=== PATIENT | female | born 1985 | race Caucasian/White ===

== ENCOUNTER 2016-12-15 10:11 | Emergency (ER) | payer MEDICAID, OTHER ==
[~2016-12-15] VITALS: Wt 75.0 kg
[2016-12-15] MEDS ORDERED: LIDOCAINE 1% (MDV) 20 ML INJ SC ONE (11:00)
[2016-12-15] MEDS ORDERED: IBUPROFEN 600 MG TAB PO ONE (11:00)
[2016-12-15] MEDS ORDERED: DOXY100T20 PO (11:34)
[2016-12-15] MEDS ORDERED: ACET500C5 PO (11:34)
--- NOTE | 2016-12-15 11:38 | ERD ---
ER Documentation Chief Complaint Date/Time DATE: 12/15/16 TIME: 11:36 Chief Complaint ABSCESS LEFT CALF HPI This 31-year-old female complains of a painful lesion on her left calf she says did not been there for several months or years but is more painful over the last week. She denies any history of trauma, fevers, restricted range of motion weakness. ROS All systems reviewed and are negative except as per history of present illness. Medications Home Meds Active Scripts Acetaminophen* (Tylophen*) 500 Mg Capsule, 1 CAP PO Q6H Y for PAIN AND OR ELEVATED TEMP, #15 CAP Prov:MUNA BURTON MD 12/15/16 Doxycycline Hyclate* (Doxycycline Hyclate*) 100 Mg Tablet.dr, 100 MG PO BID for 7 Days, TAB Prov:MUNA BURTON MD 12/15/16 PMhx/Soc Medical and Surgical Hx: pt denies Medical Hx, pt denies Surgical Hx Physical Exam Vitals Vital Signs Date Time Temp Pulse Resp B/P Pulse Ox O2 Delivery O2 Flow Rate FiO2 12/15/16 10:14 98.0 86 18 171/71 98 Physical Exam Const: [] Head: Atraumatic Eyes: Normal Conjunctiva ENT: Normal External Ears, Nose and Mouth. Neck: Full range of motion..~ No meningismus. Resp: Clear to auscultation bilaterally Cardio: Regular rate and rhythm, no murmurs Abd: Soft, non tender, non distended. Normal bowel sounds Skin: No petechiae or rashes Back: No midline or flank tenderness Ext: No cyanosis, or edema. There is approximately 1 cm palpable fluctuant lesion on the medial aspect the left calf. There is some surrounding ecchymosis. There is some inflammation no appreciable significant warmth or induration. Neur: Awake and alert Psych: Normal Mood and Affect Results 24 hrs Current Medications Medications (Trade) Dose Ordered Sig/Zainab Route PRN Reason Start Time Stop Time Status Last Admin Dose Admin Ibuprofen (Motrin) 600 mg ONCE ONCE PO 12/15/16 11:00 12/15/16 11:01 DC 12/15/16 10:55 Lidocaine (Xylocaine 1% (Mdv) 20 ml) 20 ml ONCE ONCE SC 12/15/16 11:00 12/15/16 11:01 DC Procedures/MDM Patient presents with a skin lesion on the left calf. It has a clinical appearance of either an irritated sebaceous cyst although surrounding ecchymosis suggest possible varicosity. Procedure note-the left skin lesion on the leg was prepped with Betadine. 2 cc of lidocaine was used for local infiltration. Incision was made with a number 11 scalpel. Mostly blood and clots were removed. There is no purulent discharge. 3-0 nylon suture [id number] was placed for hemostasis. The wound was then dressed. Patient presents with a skin lesion on the left calf which appears to be a ruptured varicose vein with a hematoma. Patient has no active bleeding or signs of current infection. Patient was discharged home with instructions for wound care and the suture removal in 1 week. Patient was advised he is to see his surgeon or torts law professor for treatment for recurrent symptoms and to evaluate for neoplasm for recurrence or persistence. She should otherwise return sooner for increased redness, swelling or fevers otherwise for suture removal as directed. Departure Diagnosis: Primary Impression: Varicose vein of leg Condition: Stable Patient Instructions: Varicose Veins Additional Instructions: patient appears to be ruptured varicose vein. Recommend check in 2 days for redness, fevers, new symptoms or suture removal in 7 days. See dermatology or surgery for recurrent symptoms. May need authorization from primary doctor for surgery visit. MUNA BURTON MD December 15, 2016 11:38
== END 2016-12-15 11:49 | disposition home or self-care (01) ==
LOC: FTE 10:11
DX: I83.92 Asymptomatic varicose veins of left lower extremity (principal)
CPT/HCPCS: 10060; Z7502; Z7610

== ENCOUNTER 2016-12-22 10:52 | Emergency (ER) | payer MEDICAID ==
[~2016-12-22] VITALS: Ht 160 cm; Wt 88.5 kg
[~2016-12-22 10:52] MED LIST: ACET500C5 PO; DOXY100T20 PO
[2016-12-22 11:03] VITALS: Ht 160 cm; Wt 88.5 kg
--- NOTE | 2016-12-22 12:14 | RADRPT ---
PROCEDURE: US Lower extremity Venous. CLINICAL INDICATION: Pain and swelling TECHNIQUE: Multiple sonographic images of the left lower extremity deep venous system was obtained utilizing grayscale, color-flow, compressive sonography and doppler imaging with augmentation. The images were reviewed on a PACS workstation. COMPARISON: None. FINDINGS: There is normal compressibility and flow within the left common femoral, deep femoral, superficial f emoral and popliteal veins. Normal respiratory variation and augmentation is seen. There is normal color flow and compressibility of left posterior tibial and peroneal veins IMPRESSION: No sonographic evidence for left lower extremity deep venous thrombosis. RPTAT: HH .Marcus Retana MD, MD Date Time Electronically viewed and signed by .Marcus Retana MD, on 12/22/2016 12:14 .W/
--- NOTE | 2016-12-22 12:20 | RADRPT ---
PROCEDURE: Ultrasound left calf superficial CLINICAL INDICATION: Palpable mass with pain TECHNIQUE: Axial longitudinal morgan scale and color flow images of the left calf COMPARISON: None FINDINGS: Directed ultrasound examination of the left calf over the area of interest demonstrates a 2.2 x 1.7 cm subcutaneous lesion which is cystic with a solid mural nodular component. Doppler images demonst rate vascularity within the nodular component. This may represent infected sebaceous cyst, or mass especially given the vascularity. Recommend needle biopsy or MRI for further evaluation. No other lesions are identified. IMPRESSION: 1. Directed ultrasound examination of the left calf in the area of tenderness demonstrates a 2.2 x 1.7 x 2.7 cm mixed density subcutaneous lesion with cystic component containing a solid mural nodule . The nodular component demonstrates vascular flow. Recommend further workup with biopsy RPTAT: HH .Marcus Retana MD, Date Time Electronically viewed and signed by .Marcus Retana MD, on 12/22/2016 12:19 .W/
--- NOTE | 2016-12-22 12:25 | ERD ---
ER Documentation Chief Complaint Date/Time DATE: 12/22/16 TIME: 12:22 Chief Complaint Patient here for a suture removal and has complaint of left arm numbness HPI This 31-year-old female presents for recheck on her left calf lesion. She was seen by me approximately 1 week ago. At that time the lesion appears to be possibly infection but only blood was expressed suggesting possible varicosity or inflamed hemangioma. The lesion has been slowly growing for several years. Patient continues have a small amount of spotting from the dressing was opened 100 sutures removed. There is no fevers or redness. ROS All systems reviewed and are negative except as per history of present illness. Medications Home Meds Active Scripts Acetaminophen* (Tylophen*) 500 Mg Capsule, 1 CAP PO Q6H Y for PAIN AND OR ELEVATED TEMP, #15 CAP Prov:MUNA BURTON MD 12/15/16 Doxycycline Hyclate* (Doxycycline Hyclate*) 100 Mg Tablet.dr, 100 MG PO BID for 7 Days, TAB Prov:MUNA BURTON MD 12/15/16 PMhx/Soc Medical and Surgical Hx: pt denies Medical Hx, pt denies Surgical Hx Hx Alcohol Use: No Hx Substance Use: No Hx Tobacco Use: No Smoking Status: Never smoker Physical Exam Vitals Vital Signs Date Time Temp Pulse Resp B/P Pulse Ox O2 Delivery O2 Flow Rate FiO2 12/22/16 11:03 98.0 96 20 173/100 98 Physical Exam Const: [] Alert, [id number] Head: Atraumatic Eyes: Normal Conjunctiva ENT: Normal External Ears, Nose and Mouth. Neck: Full range of motion..~ No meningismus. Resp: Clear to auscultation bilaterally Cardio: Regular rate and rhythm, no murmurs Abd: Soft, non tender, non distended. Normal bowel sounds Skin: No petechiae or rashes. On the left medial calf there is approximately 2 cm area of tenderness and swelling and residual fluctuance. Sutures are intact. There is no erythema or warmth or Homans sign. Back: No midline or flank tenderness Ext: No cyanosis, or edema Neur: Awake and alert Psych: Normal Mood and Affect Results 24 hrs Current Medications Medications (Trade) Dose Ordered Sig/Zainab Route PRN Reason Start Time Stop Time Status Last Admin Dose Admin Lidocaine (Xylocaine 1% (Mdv) 20 ml) 20 ml ONCE ONCE SC 12/22/16 12:30 12/22/16 12:31 DC Procedures/MDM Patient presents for evaluation of suture removal in her left calf. There appears to be some recurrent signs of hematoma. There is no evidence of infection or cellulitis. Given the persistent symptoms or recurrent symptoms. Left lower extremity Doppler was performed which shows no evidence of DVT. An ultrasound showed she has a 2.7 cm mixed density subcutaneous lesion with a cystic component with a small mural nodule with vascular flow. Biopsy recommended. I suspect patient will likely have rebleeding was removed the sutures today. Patient will be recommended to have biopsy of lesion as recommended by radiology evaluation of solid tumor or other etiologies. There is no current signs or symptoms of abscess, DVT, significant cellulitis. Patient has additional complaints of left shoulder pain and left arm tingling patient has a history of trauma or neck pain. She denies any shortness of breath. EKG: Rate/Rhythm: [Normal Sinus Rhythm] rate equals 79 QRS, ST, T-waves: [No changes consistent w/ acute ischemia] Impression: [No evidence of ischemia or arrhythmia] impression have a normal EKG Patient's left arm symptoms appear to be paresthesias, possibly muscular skeletal. Signs or symptoms do not suggest pneumonia, acute coronary syndrome, pulmonary visible, emergent cause of symptoms was advised to follow-up with primary doctor for further evaluation treatment return to the ER for new or worsening symptoms. Patient will be advised to have suture removal in 1 more week to allow to heal as there is a high risk for rebleeding today if we removed sutures today I suspect. Departure Diagnosis: Primary Impression: Hemangioma Additional Impression: Tumor cells, uncertain whether benign or malignant Patient Instructions: Tumor, Uncertain Cause Additional Instructions: EKG normal ultrasound shows lesion which is recommended to have biopsy. See his surgeon for further evaluation and treatment. May need authorization from primary care doctor. MUNA BURTON MD December 22, 2016 12:25
[2016-12-22] MEDS ORDERED: LIDOCAINE 1% (MDV) 20 ML INJ SC ONE (12:30)
== END 2016-12-22 12:34 | disposition home or self-care (01) ==
LOC: FTE 10:52
DX: D18.09 Hemangioma of other sites (principal); D48.7 Neoplasm of uncertain behavior of other specified sites; M54.2 Cervicalgia
CPT/HCPCS: 76536; 93005; 93971; Z7502; Z7610

== ENCOUNTER 2016-12-29 09:41 | Emergency (ER) | payer MEDICAID ==
[~2016-12-29] VITALS: Ht 154.9 cm; Wt 87.0 kg
[2016-12-29 09:57] VITALS: Ht 154.9 cm; Wt 87.0 kg
--- NOTE | 2016-12-29 11:23 | ERD ---
ER Documentation Chief Complaint Date/Time DATE: 12/29/16 TIME: 11:21 Chief Complaint SUTURE REMOVAL LEFT LOWER LEG HPI This is a 31-year-old female presents to the ER for suture removal of her left lower leg. Patient has not had any pain, redness, discharge from the area. She denies fevers or chills. She denies admitted to the upper extremity. ROS 12 point review of systems was done, all negative except per HPI. Medications Home Meds Active Scripts Acetaminophen* (Tylophen*) 500 Mg Capsule, 1 CAP PO Q6H Y for PAIN AND OR ELEVATED TEMP, #15 CAP Prov:MUNA BURTON MD 12/15/16 Doxycycline Hyclate* (Doxycycline Hyclate*) 100 Mg Tablet.dr, 100 MG PO BID for 7 Days, TAB Prov:MUNA BURTON MD 12/15/16 Allergies Allergies: Coded Allergies: No Known Allergy (Unverified , 12/29/16) PMhx/Soc Medical and Surgical Hx: pt denies Medical Hx, pt denies Surgical Hx Hx Alcohol Use: No Hx Substance Use: No Hx Tobacco Use: No Smoking Status: Never smoker Physical Exam Vitals Vital Signs Date Time Temp Pulse Resp B/P Pulse Ox O2 Delivery O2 Flow Rate FiO2 12/29/16 09:57 98.2 56 18 120/86 97 Physical Exam GENERAL: The patient is well developed and appropriate for usual state of health , in no apparent distress. HEENT: Atraumatic. CHEST: Clear to auscultation bilaterally. There are no rales, wheezes or rhonchi. HEART: Regular rate and rhythm. No murmurs, clicks, rubs or gallops. NEURO: Alert and oriented SKIN: There is one suture to patient's left lower leg, with no wound dehiscence , discharge. Procedures/MDM Suture Removal by me: Sutures removed with tweezers and scissors without incident. Wound shows no evidence of infection, foreign body, neurologic injury, vascular injury, open joint or tendon laceration. Patient to follow up PRN. Departure Diagnosis: Primary Impression: Encounter for removal of sutures Condition: Stable Patient Instructions: Suture Removal, No Complication Additional Instructions: Llame al doctor MAANA y jeaneth akhil LYNETTE PARA DENTRO DE 1-2 GALVEZ.Dgale a la secretaria que nosotros le instruimos hacer esta lynette.Avise o llame si lim condicin se empeora antes de la lynette. Regresa aqui si peor o no mejor. TEN JENSEN Dec 29, 2016 11:23
== END 2016-12-29 11:25 | disposition home or self-care (01) ==
LOC: FTE 09:41
DX: Z48.02 Encounter for removal of sutures (principal)
CPT/HCPCS: 99281

== ENCOUNTER 2019-01-31 12:45 | Emergency (ER) | payer SELFPAY ==
[~2019-01-31] VITALS: Ht 167.6 cm; Wt 89.9 kg
[2019-01-31 12:57] VITALS: BP 167/98; PULSE 89; RESP 18; Ht 167.6 cm; Wt 89.9 kg
--- NOTE | 2019-01-31 14:18 | ERD ---
ER Documentation Chief Complaint Chief Complaint numbness and tingling left arm x1mth, chest pressure last night HPI 33-year-old female presents with complaint of numbness and tingling of her left arm for the past month. She stated additionally that she started feeling pain pressure in the left side of her chest last night. States that it is not painful rather just feels like a pressure. Denies SOB, dyspnea, lower extremity swelling or pain, pain on exertion, diaphoresis, nausea, radiating of pain, recent travel or immobilization, hemoptysis, dsypnea, weakness, vision problems, headache history of clotting disorder, syncope, fever, or cough. ROS All systems reviewed and are negative except as per history of present illness. Medications Home Meds Active Scripts Acetaminophen* (Tylophen*) 500 Mg Capsule, 1 CAP PO Q6H PRN for PAIN AND OR ELEVATED TEMP, #15 CAP Prov:MUNA BURTON MD 12/15/16 Doxycycline Hyclate* (Doxycycline Hyclate*) 100 Mg Tablet.dr, 100 MG PO BID for 7 Days, TAB Prov:MUNA BURTON MD 12/15/16 Allergies Allergies: Coded Allergies: No Known Allergy (Unverified , 12/29/16) PMhx/Soc Medical and Surgical Hx: pt denies Medical Hx History of Surgery: Yes (tumor removal left lower leg) Anesthesia Reaction: No Hx Neurological Disorder: No Hx Respiratory Disorders: No Hx Cardiac Disorders: No Hx Psychiatric Problems: No Hx Miscellaneous Medical Probl: No Hx Alcohol Use: No Hx Substance Use: No Hx Tobacco Use: No Smoking Status: Never smoker FmHx Family History: No diabetes, No coronary disease, No other Physical Exam Vitals Vital Signs Date Temp Pulse Resp B/P (MAP) Pulse Ox O2 O2 Flow FiO2 Time Delivery Rate 01/31/19 98.1 89 18 167/98 99 12:57 (121) Physical Exam Const: No acute distress Head: Atraumatic Eyes: Normal Conjunctiva ENT: Normal External Ears, Nose and Mouth. Neck: Full range of motion. No meningismus. Resp: Clear to auscultation bilaterally Cardio: Regular rate and rhythm, no murmurs Abd: Soft, non tender, non distended. Normal bowel sounds Skin: No petechiae or rashes Back: No midline or flank tenderness Ext: No cyanosis, or edema left arm is 5 out of 5 strength with full range of motion.. Distal pulse sensation intact. Neur: Awake and alert Psych: Normal Mood and Affect Neuro: M/S: Alert and oriented Face: EOMI, face and pharynx with normal sensation and function Motor: Normal strength throughout Sensation: Normal sensation throughout Speech: Normal Cerebel: Normal coordination Normal gait Normal finger to nose DTR: 2+ and symmetric upper/lower extremities Result Diagram: 01/31/19 1420 01/31/19 1420 Results 24 hrs Laboratory Tests Test 01/31/19 14:17 01/31/19 14:20 POC Beta HCG, Qualitative NEGATIVE White Blood Count 6.8 10^3/ul Red Blood Count 4.95 10^6/ul Hemoglobin 14.9 g/dl Hematocrit 43.1 % Mean Corpuscular Volume 87.1 fl Mean Corpuscular Hemoglobin 30.1 pg Mean Corpuscular Hemoglobin Concent 34.6 g/dl Red Cell Distribution Width 12.3 % Platelet Count 181 10^3/UL Mean Platelet Volume 10.9 fl Immature Granulocytes % 0.300 % Neutrophils % 68.4 % Lymphocytes % 23.9 % Monocytes % 5.6 % Eosinophils % 1.2 % Basophils % 0.6 % Nucleated Red Blood Cells % 0.0 /100WBC Immature Granulocytes # 0.020 10^3/ul Neutrophils # 4.6 10^3/ul Lymphocytes # 1.6 10^3/ul Monocytes # 0.4 10^3/ul Eosinophils # 0.1 10^3/ul Basophils # 0.0 10^3/ul Nucleated Red Blood Cells # 0.0 10^3/ul Sodium Level 144 mmol/L Potassium Level 4.2 mmol/L Chloride Level 109 mmol/L Carbon Dioxide Level 25 mmol/L Anion Gap 10 Blood Urea Nitrogen 9 mg/dl Creatinine 0.84 mg/dl Est Glomerular Filtrat Rate mL/min > 60 mL/min Glucose Level 99 mg/dl Calcium Level 9.8 mg/dl Total Bilirubin 0.5 mg/dl Direct Bilirubin 0.00 mg/dl Indirect Bilirubin 0.5 mg/dl Aspartate Amino Transf (AST/SGOT) 25 IU/L Alanine Aminotransferase (ALT/SGPT) 37 IU/L Alkaline Phosphatase 86 IU/L Troponin I < 0.012 ng/ml Total Protein 8.5 g/dl Albumin 4.6 g/dl Globulin 3.90 g/dl Albumin/Globulin Ratio 1.17 Procedures/MDM EKG: Rate/Rhythm: Normal Sinus Rhythm QRS, ST, T-waves: No changes consistent w/ acute ischemia Impression: No evidence of ischemia or arrhythmia DIAGNOSTIC IMAGING REPORT Patient: RINA SOTO : 1985 Age: 33 Sex: F MR #: [id number] DOS: 01/31/19 1404 Ordering MD: MARISELA CASTRO Location: [facility] Room/Bed: PROCEDURE: XR Chest. CLINICAL INDICATION: Chest pain TECHNIQUE: Single portable view of the chest was obtained COMPARISON: No priors for comparison FINDINGS: The trachea is midline. The cardiac silhouette and pulmonary vascularity are within normal limits. The lungs are clear. The costophrenic angles are sharp. Right-sided azygos lobe. IMPRESSION: 1. No evidence of acute cardiopulmonary disease. RPTAT: AAPP Physician Luz Maria Date Time Electronically viewed and signed by Physician Luz Maria on 01/31/2019 15:17 JL/ CC: MARISELA CASTRO [id number] MDM: Given patient's complaint of pressure in the chest and tingling in her arm there is concern for possible cardiac etiology. However, chest x-ray, EKG, troponins were all within normal limits. I have low suspicition for acute coronary syndrome, pulmonary embolism, aortic dissection, AAA, pneumothorax, esophageal rupture, pericarditis, myocarditis, or pneumonia based on EKG, imaging, labs, patient history and exam. At this time, patient is stable for discharge and outpatient management. I have instructed the patient to follow-up with his/her primary care physician in 1-2 days. I have discussed with the patient the possibility of needing to see a specialist for further workup and imaging studies if symptoms persist. I have instructed the patient to promptly return to the ER for any new or worsening symptoms including but not limited to increased pain, fever, nausea, vomiting, weakness or LOC. The patient and/or family expressed understanding of and agreement with this plan. All questions were answered. Home care instructions were provided. [Communication with patient both during the exam and instructions for discharge were performed with using a candy polisher . Patient gave verbal confirmation to the practitioner, through the candy polisher, that they understood everythign that was being said to them.] DISCLAIMER: Inadvertent spelling and grammatical errors are likely due to EHR/dictation software use and do not reflect on the overall quality of patient care. Also, please note that the electronic time recorded on this note does not necessarily reflect the actual time of the patient encounter. Departure Diagnosis: Primary Impression: Tingling Additional Impression: Chest pressure Condition: Stable MARISELA CASTRO Jan 31, 2019 14:18
== END 2019-01-31 15:56 | disposition home or self-care (01) ==
LOC: FTE 12:45
DX: R20.2 Paresthesia of skin (principal); R07.89 Other chest pain
CPT/HCPCS: 71045; 80053; 81025; 84484; 85025; 93005